=== PATIENT | female | born 1945 | race Caucasian/White ===

== ENCOUNTER → 2016-11-10 | Outpatient (REF) | payer OTHER ==
[~2016-11-10] MED LIST: /ATOR40TA OR; /PANT40TA OR; /WARF25TA OR; ACET650S OR; AMLO10TAB OR; ASPI81TA83 OR; ATEN50TA2 OR; HYDR25TA6; LEVOXYL25 MCG; LEVOXYL25 MCG OR; LISI20TA5; NITR0.4S SL; TETR250C; WARF5VL IV
[2016-11-10 17:07] LABS: ALBUMIN 3.8 GM/DL (3.2-5.2); ALBUMIN/GLOBULIN RATIO 0.93 (1.00-1.93); BILIRUBIN,TOTAL 1.2 MG/DL (0.2-1.0); CREATININE FOR GFR 1.6 MG/DL (0.55-1.02); GLOMERULAR FILTRATION RATE 33.8 (>39); POTASSIUM SERUM 4.3 MEQ/L (3.5-5.1); TOTAL PROTEIN 7.9 GM/DL (6.4-8.2); URIC ACID 5.5 MG/DL (2.6-6.0)
[2016-11-10 18:20] LABS: BASO % 0.5 % (0.0-1.0); EOS # 0.2 K/mm3 (0.0-0.50); LYMPH # 1.8 K/mm3 (1.5-4.5); MEAN CORPUSCULAR HEMOGLOBIN 27.6 pg (27.0-33.0); MEAN CORPUSCULAR HGB CONC 31.9 g/dl (32.0-36.5); MEAN CORPUSCULAR VOLUME 86.6 fl (80.0-96.0); MONO # 0.5 K/mm3 (0.0-0.8); MONO % 7.8 % (0.0-5.0); NEUTROPHILS # 3.9 K/mm3 (1.8-7.7); NEUTROPHILS % 60.9 % (36.0-66.0); RED CELL DISTRIBUTION WIDTH 15.2 % (11.5-14.5); WHITE BLOOD COUNT 6.5 K/mm3 (4.0-10.0)
== END ==
LOC: M LAB REF 16:15
PROVIDERS: ATTEND Family Medicine
DX: Z00.00 Encounter for general adult medical examination without abnormal findings (principal); I48.91 Unspecified atrial fibrillation; Z79.01 Long term (current) use of anticoagulants; N18.3 Chronic kidney disease, stage 3 (moderate); E11.9 Type 2 diabetes mellitus without complications; M10.9 Gout, unspecified; E78.5 Hyperlipidemia, unspecified; N25.0 Renal osteodystrophy

== ENCOUNTER → 2017-12-12 | Outpatient (REF) | payer OTHER ==
[2017-12-12 18:33] LABS: BASO # 0.1 10^3/uL (0.0-0.2); BASO % 0.7 % (0.0-1.0); EOS # 0.3 10^3/uL (0.0-0.50); EOS % 4.4 % (0.0-3.0); HEMATOCRIT 41.7 % (36.0-47.0); HEMOGLOBIN 13.5 g/dl (12.0-15.5); IMMATURE GRANULOCYTE % 0.1 % (0-3.0); LYMPH % 29.5 % (24.0-44.0); MEAN CORPUSCULAR HEMOGLOBIN 28.1 pg (27.0-33.0); MEAN CORPUSCULAR HGB CONC 32.4 g/dl (32.0-36.5); MEAN CORPUSCULAR VOLUME 86.9 fl (80.0-96.0); MONO # 0.7 10^3/uL (0.0-0.8); MONO % 9.6 % (0.0-5.0); NEUTROPHILS # 3.8 10^3/uL (1.8-7.7); NEUTROPHILS % 55.7 % (36.0-66.0); PLATELET COUNT, AUTOMATED 151 10^3/uL (150-450); RED CELL DISTRIBUTION WIDTH 16.1 % (11.5-14.5); WHITE BLOOD COUNT 6.8 10^3/uL (4.0-10.0)
[2017-12-12 19:08] LABS: ALBUMIN 3.5 GM/DL (3.2-5.2); ALBUMIN/GLOBULIN RATIO 0.88 (1.00-1.93); ALKALINE PHOSPHATASE 115 U/L (45-117); ALT/SGPT 23 U/L (12-78); ANION GAP 10 MEQ/L (8-16); AST/SGOT 22 U/L (7-37); BILIRUBIN,TOTAL 1.4 MG/DL (0.2-1.0); BLOOD UREA NITROGEN 24 MG/DL (7-18); CARBON DIOXIDE LEVEL 26 MEQ/L (21-32); CHLORIDE LEVEL 106 MEQ/L (98-107); CHOLESTEROL LEVEL 151 MG/DL (<200); CHOLESTEROL RISK RATIO 3.775 (<5); GLOMERULAR FILTRATION RATE 33.7 (>39); GLUCOSE, FASTING 117 MG/DL (70-100); HDL CHOLESTEROL 40 MG/DL (>40); LDL CHOLESTEROL 71 MG/DL (<100); NON-HDL-C 111 MG/DL; POTASSIUM SERUM 4.2 MEQ/L (3.5-5.1); SODIUM LEVEL 142 MEQ/L (136-145); TOTAL PROTEIN 7.5 GM/DL (6.4-8.2); TRIGLYCERIDES LEVEL 198 MG/DL (<150)
[2017-12-12 19:56] LABS: PTH INTACT 32.9 PG/ML (18.5-88.0)
== END ==
LOC: M LAB REF 16:39
DX: I48.91 Unspecified atrial fibrillation (principal); N18.3 Chronic kidney disease, stage 3 (moderate); E11.9 Type 2 diabetes mellitus without complications; E78.5 Hyperlipidemia, unspecified; Z79.01 Long term (current) use of anticoagulants; Z00.00 Encounter for general adult medical examination without abnormal findings
CPT/HCPCS: 80053

== ENCOUNTER → 2022-07-27 | Outpatient (REF) | payer OTHER ==
[~2022-07-27] MED LIST changes: -/ATOR40TA OR; -/PANT40TA OR; -/WARF25TA OR; +COUM1TAB18 OR; +LIPI1TAB2 OR; +PROT1TAB2 OR
[2022-07-27 18:27] LABS: PERCENT SATURATION 6.8 % (13.2-45.0)
[2022-07-27 18:29] LABS: FERRITIN 42.3 NG/ML (7.3-270.7)
== END ==
LOC: M LAB REF 17:29
PROVIDERS: ATTEND Internal Medicine Nephrology
DX: E61.1 Iron deficiency (principal)

== ENCOUNTER → 2022-12-19 | Outpatient (REF) | payer MEDICARE ==
[2022-12-19 17:58] LABS: FERRITIN 43.8 NG/ML (7.3-270.7); PERCENT SATURATION 7.2 % (13.2-45.0)
== END ==
LOC: M LAB REF 16:53
PROVIDERS: ATTEND Internal Medicine Nephrology
DX: E61.1 Iron deficiency (principal)

== ENCOUNTER 2023-01-16 14:51 | Outpatient (CLI) | payer MEDICARE, MEDICAID ==
[~2023-01-16] VITALS: Ht 160 cm; Wt 86.3 kg
[~2023-01-16 14:51] MED LIST changes: +ALBUTEROL SULFATE 2.5MG/0.5ML INH NEB SOLN INH PRN; +EPINEPHrine INJ 1 MG/ML 1ML AMP IM PRN; +diphenhydrAMINE 50MG/ML VIAL IV PRN; +methylPREDNISolone 125MG 2ML VIAL IV PRN
[2023-01-16 15:04] VITALS: BP 146/65; O2SAT 98
[2023-01-16] MEDS ORDERED: IRON SUCROSE 300 MG in NS 185 ML IV ONE (15:20)
[2023-01-16] MEDS ORDERED: NS 1,000 ML IV SCH (15:25)
[2023-01-16 17:06] VITALS: BP 138/64; O2SAT 99
== END 2023-01-16 17:05 ==
LOC: M INFU 14:51
PROVIDERS: ATTEND Internal Medicine Nephrology
DX: D50.9 Iron deficiency anemia, unspecified (principal)
CPT/HCPCS: 96365; J1756

== ENCOUNTER 2023-01-30 14:55 | Outpatient (CLI) | payer MEDICARE ==
[~2023-01-30] VITALS: Ht 157.5 cm; Wt 85.4 kg
[2023-01-30] MEDS ORDERED: IRON SUCROSE 300 MG in NS 185 ML IV ONE (15:05)
[2023-01-30 15:08] VITALS: BP 159/72; O2SAT 98
[2023-01-30] MEDS ORDERED: NS 1,000 ML IV SCH (15:10)
[2023-01-30 16:45] VITALS: BP 147/65; O2SAT 100
== END 2023-01-30 16:49 ==
LOC: M INFU 14:55
PROVIDERS: ATTEND Internal Medicine Nephrology
DX: D50.9 Iron deficiency anemia, unspecified (principal)
CPT/HCPCS: 96365; J1756

== ENCOUNTER → 2023-05-10 | Outpatient (REF) | payer MEDICARE ==
[~2023-05-10] MED LIST changes: -ALBUTEROL SULFATE 2.5MG/0.5ML INH NEB SOLN INH PRN; -EPINEPHrine INJ 1 MG/ML 1ML AMP IM PRN; -diphenhydrAMINE 50MG/ML VIAL IV PRN; -methylPREDNISolone 125MG 2ML VIAL IV PRN
[2023-05-10 18:46] LABS: FERRITIN 42.7 NG/ML (7.3-270.7)
== END ==
LOC: M LAB REF 17:13
PROVIDERS: ATTEND Internal Medicine Nephrology
DX: E61.1 Iron deficiency (principal)

== ENCOUNTER 2023-06-21 10:03 | Outpatient (CLI) | payer MEDICARE ==
[~2023-06-21] VITALS: Ht 157.5 cm; Wt 79.5 kg
[~2023-06-21 10:03] MED LIST changes: +ALBUTEROL SULFATE 2.5MG/0.5ML INH NEB SOLN INH PRN; +EPINEPHrine INJ 1 MG/ML 1ML AMP IM PRN; +NS 1,000 ML IV SCH; +diphenhydrAMINE 50MG/ML VIAL IV PRN; +methylPREDNISolone 125MG 2ML VIAL IV PRN
[2023-06-21 10:11] VITALS: BP 136/64; O2SAT 97
[2023-06-21] MEDS: IRON SUCROSE 300 MG in NS 250 ML OVER 90 MIN. IV ONE (10:27)
[2023-06-21] MEDS ORDERED: ELIQ5TAB PO (10:47)
[2023-06-21 12:05] VITALS: BP 130/61; O2SAT 96
== END 2023-06-21 12:17 | disposition home or self-care (01) ==
LOC: M INFU 10:03
PROVIDERS: ATTEND Internal Medicine Nephrology
DX: E61.1 Iron deficiency (principal)
CPT/HCPCS: 96365; 96366; J1756

== ENCOUNTER 2023-07-05 11:35 | Outpatient (CLI) | payer MEDICARE ==
[~2023-07-05] VITALS: Ht 157.5 cm; Wt 80.9 kg
[2023-07-05 11:23] VITALS: BP 153/65; O2SAT 100
[2023-07-05] MEDS: IRON SUCROSE 300 MG in NS 250 ML OVER 90 MIN. IV ONE (11:32)
[~2023-07-05 11:35] MED LIST changes: +ELIQ5TAB PO
== END 2023-07-05 13:16 | disposition home or self-care (01) ==
LOC: M INFU 11:35
PROVIDERS: ATTEND Internal Medicine Nephrology
DX: E61.1 Iron deficiency (principal)
CPT/HCPCS: 96365; 96366; J1756

== ENCOUNTER 2023-07-19 13:15 | Outpatient (CLI) | payer MEDICARE ==
[~2023-07-19] VITALS: Ht 158.8 cm; Wt 83.0 kg
[2023-07-19 13:15] VITALS: BP 137/63; O2SAT 100
[~2023-07-19 13:15] MED LIST changes: +ALBUTEROL SULFATE 2.5MG/0.5ML INH NEB SOLN INH PRN; +EPINEPHrine INJ 1 MG/ML 1ML AMP IM PRN; +NS 1,000 ML IV SCH; +diphenhydrAMINE 50MG/ML VIAL IV PRN; +methylPREDNISolone 125MG 2ML VIAL IV PRN
[2023-07-19] MEDS: IRON SUCROSE 300 MG in NS 250 ML OVER 90 MIN. IV ONE (13:25)
[2023-07-19 15:15] VITALS: BP 143/99; O2SAT 99
== END 2023-07-19 15:15 | disposition home or self-care (01) ==
LOC: M INFU 13:15
PROVIDERS: ATTEND Internal Medicine Nephrology
DX: E61.1 Iron deficiency (principal)
CPT/HCPCS: 96365; 96366; J1756

== ENCOUNTER → 2023-07-19 | Outpatient (CLI) | payer MEDICAID, MEDICARE ==
[~2023-07-19] MED LIST changes: -ALBUTEROL SULFATE 2.5MG/0.5ML INH NEB SOLN INH PRN; -EPINEPHrine INJ 1 MG/ML 1ML AMP IM PRN; -NS 1,000 ML IV SCH; -diphenhydrAMINE 50MG/ML VIAL IV PRN; -methylPREDNISolone 125MG 2ML VIAL IV PRN
== END ==
LOC: M RAD 15:25
PROVIDERS: ATTEND Otolaryngology
DX: R22.1 Localized swelling, mass and lump, neck (principal)

== ENCOUNTER 2024-02-18 06:29 | Observation (INO) | payer MEDICARE ==
[~2024-02-18] VITALS: Ht 157.5 cm; Wt 81.7 kg
[~2024-02-18 06:29] MED LIST changes: -ALBUTEROL SULFATE 2.5MG/0.5ML INH NEB SOLN INH PRN; +ALLO100T PO; +AMLO1TAB25 PO; +ATOR40TA75 PO; +BAYE81TA10 PO; -EPINEPHrine INJ 1 MG/ML 1ML AMP IM PRN; +FAMO40TA3 PO; +FARX1TAB5 PO; +LEVO112T2 PO; +METO1TAB7 PO; +METO25TA PO; -NS 1,000 ML IV SCH; +PANT40TA29 PO; +POTA-150 PO; +TORS100T PO; +VENTAER INH; -diphenhydrAMINE 50MG/ML VIAL IV PRN; -methylPREDNISolone 125MG 2ML VIAL IV PRN
[2024-02-18] MEDS: CYCLOPENTOLATE 1% OPHTH SOLN 2ML BTL OD SCH (07:35)
[2024-02-18] MEDS: FLURBIPROFEN 0.03% OPHTH SOLN 2.5 ML OD SCH (07:35)
[2024-02-18] MEDS: PHENYLEPHRINE 2.5% OPHTH SOL 2ML OD SCH (07:35)
[2024-02-18] MEDS: TETRACAINE 0.5% OPHTH SOLN 4ML OD SCH (07:35)
[2024-02-18 08:05] LABS: POTASSIUM SERUM 2.7 MMOL/L (3.5-5.1)
[2024-02-18] MEDS ORDERED: MIDAZOLAM INJ 2MG/2ML VIAL As Ordered ONE (08:18)
[2024-02-18] MEDS ORDERED: fentaNYL 100 MCG/2 ML INJECTION As Ordered ONE (08:18)
[2024-02-18] MEDS ORDERED: MAG SULF 1GM/100ML (MAG RUN) 1 GM in IV 1 EA IV SCH (09:25)
[2024-02-18 09:45] LABS: CALCIUM LEVEL 9.7 MG/DL (8.3-10.6); CREATININE FOR GFR 3.04 MG/DL (0.55-1.30); GLOMERULAR FILTRATION RATE 15.8 (>39); MAGNESIUM LEVEL 2.6 MG/DL (1.8-2.4)
[2024-02-18] MEDS: POTASSIUM CHLORIDE 10MEQ SR TABLET PO SCH (10:09)
[2024-02-18] MEDS ORDERED: GLUCOSE 4 GM CHEW PO PRN (11:30)
[2024-02-18] MEDS ORDERED: DEXTROSE 50% 50ML SYRINGE IV PRN (11:30)
[2024-02-18] MEDS ORDERED: GLUCAGON INJ 1MG VIAL SC PRN (11:30)
[2024-02-18 14:53] VITALS: BP 137/52; TEMP 97.7; O2SAT 98
[2024-02-18] MEDS: LR 1,000 ML IV SCH (15:09)
[2024-02-18] MEDS: INSULIN LISPRO (NovoLOG) PER UNIT SC SCH ×2 (15:09→20:33)
[2024-02-18] MEDS ORDERED: HOME MED LIST COMPLETE! XX SCH (18:25)
[2024-02-18] MEDS ORDERED: ALBUTEROL 90 MCG/ACT 8GM HFA INHALER INH PRN (18:50)
[2024-02-18 19:27] LABS: MAGNESIUM LEVEL 2.6 MG/DL (1.8-2.4); POTASSIUM SERUM 3.5 MMOL/L (3.5-5.1)
[2024-02-18 20:17] VITALS: BP 135/53; TEMP 97.9; O2SAT 97
[2024-02-18] MEDS: APIXABAN 2.5 MG TAB (ELIQUIS) PO SCH (20:33)
[2024-02-19 00:52] LABS: MAGNESIUM LEVEL 2.6 MG/DL (1.8-2.4); POTASSIUM SERUM 3.7 MMOL/L (3.5-5.1)
[2024-02-19 03:25] VITALS: BP 132/54; TEMP 98.6; O2SAT 97
[2024-02-19] MEDS: LEVOTHYROXINE 112MCG TABLET (0.112MG) PO SCH (06:15)
[2024-02-19 06:30] LABS: CALCIUM LEVEL 9.2 MG/DL (8.3-10.6); CREATININE FOR GFR 3.08 MG/DL (0.55-1.30); GLOMERULAR FILTRATION RATE 15.6 (>39); MAGNESIUM LEVEL 2.4 MG/DL (1.8-2.4); POTASSIUM SERUM 3.3 MMOL/L (3.5-5.1)
[2024-02-19 06:32] LABS: THYROXINE (T4) 5.5 UG/DL (4.5-10.9)
[2024-02-19 06:33] LABS: FREE THYROXINE INDEX 2.2 % (1.3-4.8); T UPTAKE 39.4 % (22.5-37.0); THYROID STIMULATING HORMONE 8.092 uIU/ML (0.55-4.78)
[2024-02-19] MEDS: ASPIRIN 81MG ENTERIC TABLET PO SCH (08:43)
[2024-02-19] MEDS: allopurinoL 100 MG TAB PO SCH (08:43)
[2024-02-19] MEDS: ATORVASTATIN 20 MG TAB PO SCH (08:43)
[2024-02-19] MEDS: PANTOPRAZOLE 40MG TAB (PROTONIX) PO SCH (08:44)
[2024-02-19 08:46] VITALS: BP 126/53
[2024-02-19] MEDS ORDERED: metOLazone 2.5 MG TAB PO SCH (09:00)
[2024-02-19] MEDS: TORSEMIDE 100 MG TAB PO SCH (09:00)
[2024-02-19] MEDS: LIDOCAINE 1% SDV 5ML VIAL As Ordered ONE (09:57)
[2024-02-19] MEDS: CEFUROXIME 1MG/0.1ML INTRACAMERAL INJ As Ordered ONE (09:58)
[2024-02-19] MEDS: FAMOTIDINE 20 MG TAB PO SCH (11:09)
[2024-02-19] MEDS: POTASSIUM CHLORIDE 10MEQ SR TABLET PO ONE ×2 (11:09→14:16)
[2024-02-19] MEDS: SPIRONOLACTONE 25 MG TAB PO ONE (11:09)
[2024-02-19 11:58] VITALS: BP 133/57; TEMP 98.1; O2SAT 100
[2024-02-19 12:36] LABS: MAGNESIUM LEVEL 2.5 MG/DL (1.8-2.4); POTASSIUM SERUM 3.5 MMOL/L (3.5-5.1)
[2024-02-19] MEDS ORDERED: POTASSIUM CHLORIDE 10MEQ SR TABLET PO SCH (13:00)
[2024-02-19] MEDS ORDERED: ALDA25TA2 PO (16:48)
[2024-02-19] MEDS ORDERED: POTA-150 PO (16:48)
[2024-02-20] MEDS ORDERED: SPIRONOLACTONE 25 MG TAB PO SCH (09:00)
== END 2024-02-19 18:03 | disposition home or self-care (01) ==
LOC: M SDC 06:29 → M RR INP 06:30 → M MSPAV 14:47
PROVIDERS: ADMIT General Practice; ATTEND Ophthalmology
DX: E87.6 Hypokalemia (principal); N17.9 Acute kidney failure, unspecified; N18.4 Chronic kidney disease, stage 4 (severe); I48.91 Unspecified atrial fibrillation; R00.1 Bradycardia, unspecified; E03.9 Hypothyroidism, unspecified; R94.6 Abnormal results of thyroid function studies; H25.9 Unspecified age-related cataract; Z53.09 Procedure and treatment not carried out because of other contraindication; I50.9 Heart failure, unspecified; J44.9 Chronic obstructive pulmonary disease, unspecified; J96.11 Chronic respiratory failure with hypoxia; Z99.81 Dependence on supplemental oxygen; D64.9 Anemia, unspecified; Z87.891 Personal history of nicotine dependence; Z79.899 Other long term (current) drug therapy; Z79.01 Long term (current) use of anticoagulants; Z79.82 Long term (current) use of aspirin; Z79.890 Hormone replacement therapy
CPT/HCPCS: 36415; 76775; 80048; 83735; 83880; 84132; 84436; 84443; 84479; 93005; 97116; 97161; 97165; G0378; G0379; J1815

== ENCOUNTER 2024-03-03 06:28 | Day surgery (SDC) | payer MEDICARE ==
[~2024-03-03] VITALS: Ht 157.5 cm; Wt 79.4 kg
[~2024-03-03 06:28] MED LIST changes: +ALDA25TA2 PO
[2024-03-03] MEDS ORDERED: MIDAZOLAM INJ 2MG/2ML VIAL As Ordered ONE (06:52)
[2024-03-03] MEDS ORDERED: fentaNYL 100 MCG/2 ML INJECTION As Ordered ONE (06:53)
[2024-03-03] MEDS ORDERED: LR 1,000 ML IV SCH (07:00)
[2024-03-03] MEDS: FLURBIPROFEN 0.03% OPHTH SOLN 2.5 ML OD SCH (07:16)
[2024-03-03] MEDS: TETRACAINE 0.5% OPHTH SOLN 4ML OD SCH (07:16)
[2024-03-03] MEDS: PHENYLEPHRINE 2.5% OPHTH SOL 2ML OD SCH (07:16)
[2024-03-03] MEDS: CYCLOPENTOLATE 1% OPHTH SOLN 2ML BTL OD SCH (07:16)
[2024-03-03] MEDS: LIDOCAINE 1% SDV 5ML VIAL As Ordered ONE (08:35)
[2024-03-03] MEDS: CEFUROXIME 1MG/0.1ML INTRACAMERAL INJ As Ordered ONE (08:45)
[2024-03-03 08:56] VITALS: BP 137/65; TEMP 97.8; O2SAT 95
[2024-03-03] MEDS: TRYPAN BLUE 0.06 % 2.25 ML OPHTH SYR (VISIONBLUE) As Ordered ONE (09:00)
== END 2024-03-03 09:13 | disposition home or self-care (01) ==
LOC: M SDC 06:28
PROVIDERS: ATTEND Ophthalmology
DX: H25.9 Unspecified age-related cataract (principal); E11.9 Type 2 diabetes mellitus without complications; I48.91 Unspecified atrial fibrillation; Z86.73 Personal history of transient ischemic attack (TIA), and cerebral infarction without residual deficits; Z79.899 Other long term (current) drug therapy; Z98.42 Cataract extraction status, left eye
CPT/HCPCS: 66984; J0697; J2250; J3010; V2632

== ENCOUNTER 2024-03-24 07:22 | Day surgery (SDC) | payer MEDICARE ==
[~2024-03-24] VITALS: Ht 157.5 cm; Wt 82.7 kg
[~2024-03-24 07:22] MED LIST changes: +LR 1,000 ML IV SCH; +MIDAZOLAM INJ 2MG/2ML VIAL As Ordered ONE; +POTA-298 PO; +SPIR-10 PO; +fentaNYL 100 MCG/2 ML INJECTION As Ordered ONE
[2024-03-24] MEDS: TETRACAINE 0.5% OPHTH SOLN 4ML OS SCH (07:58)
[2024-03-24] MEDS: CYCLOPENTOLATE 1% OPHTH SOLN 2ML BTL OS SCH (07:58)
[2024-03-24] MEDS: FLURBIPROFEN 0.03% OPHTH SOLN 2.5 ML OS SCH (07:59)
[2024-03-24] MEDS: PHENYLEPHRINE 2.5% OPHTH SOL 2ML OS SCH (07:59)
[2024-03-24] MEDS: LIDOCAINE 1% SDV 5ML VIAL As Ordered ONE (09:30)
[2024-03-24] MEDS: CEFUROXIME 1MG/0.1ML INTRACAMERAL INJ As Ordered ONE (09:31)
[2024-03-24 09:40] VITALS: BP 121/58; TEMP 97; O2SAT 96
== END 2024-03-24 09:55 | disposition home or self-care (01) ==
LOC: M SDC 07:22
PROVIDERS: ATTEND Ophthalmology
DX: E11.36 Type 2 diabetes mellitus with diabetic cataract (principal); H25.12 Age-related nuclear cataract, left eye; I48.91 Unspecified atrial fibrillation; I10 Essential (primary) hypertension; J44.9 Chronic obstructive pulmonary disease, unspecified; E89.0 Postprocedural hypothyroidism; E78.00 Pure hypercholesterolemia, unspecified; N28.9 Disorder of kidney and ureter, unspecified; Z79.890 Hormone replacement therapy; Z79.84 Long term (current) use of oral hypoglycemic drugs; Z79.01 Long term (current) use of anticoagulants; Z79.899 Other long term (current) drug therapy; K21.9 Gastro-esophageal reflux disease without esophagitis; M10.9 Gout, unspecified; Z92.3 Personal history of irradiation; Z86.73 Personal history of transient ischemic attack (TIA), and cerebral infarction without residual deficits; Z87.891 Personal history of nicotine dependence
CPT/HCPCS: 66984; J0697; J2250; J3010; V2632

== ENCOUNTER → 2024-05-21 | Outpatient (REF) | payer MEDICARE ==
[~2024-05-21] MED LIST changes: -LR 1,000 ML IV SCH; -MIDAZOLAM INJ 2MG/2ML VIAL As Ordered ONE; -fentaNYL 100 MCG/2 ML INJECTION As Ordered ONE
[2024-05-21 17:09] LABS: CALCIUM LEVEL 9.8 MG/DL (8.3-10.6); CREATININE FOR GFR 3.77 MG/DL (0.55-1.30); GLOMERULAR FILTRATION RATE 12.3 (>39)
== END ==
LOC: M LAB REF 15:26
PROVIDERS: ATTEND Family Medicine
DX: I35.0 Nonrheumatic aortic (valve) stenosis (principal); D64.9 Anemia, unspecified; I12.9 Hypertensive chronic kidney disease with stage 1 through stage 4 chronic kidney disease, or unspecified chronic kidney disease; E11.9 Type 2 diabetes mellitus without complications; M10.9 Gout, unspecified

== ENCOUNTER → 2024-06-03 | Outpatient (REF) | payer MEDICARE ==
[2024-06-03 16:45] LABS: CALCIUM LEVEL 9.1 MG/DL (8.3-10.6); CREATININE FOR GFR 3.16 MG/DL (0.55-1.30); GLOMERULAR FILTRATION RATE 15.1 (>39); POTASSIUM SERUM 4.1 MMOL/L (3.5-5.1)
== END ==
LOC: M LAB REF 15:56
PROVIDERS: ATTEND Family Medicine
DX: I12.9 Hypertensive chronic kidney disease with stage 1 through stage 4 chronic kidney disease, or unspecified chronic kidney disease (principal); E87.6 Hypokalemia; I27.20 Pulmonary hypertension, unspecified

== ENCOUNTER → 2024-06-24 | Outpatient (CLI) | payer MEDICARE ==
[2024-06-24 16:37] LABS: BASO % 0.5 % (0.0-1.0); EOS # 0.3 10^3/uL (0.0-0.5); EOS % 3.1 % (0.0-3.0); HEMATOCRIT 33.3 % (36.0-47.0); LYMPH # 1.3 10^3/uL (1.5-5.0); LYMPH % 16.4 % (24.0-44.0); MEAN CORPUSCULAR HEMOGLOBIN 25.4 pg (27.0-33.0); MEAN CORPUSCULAR VOLUME 84.5 fl (80.0-96.0); MONO # 0.8 10^3/uL (0.0-0.8); MONO % 9.3 % (2.0-8.0); NEUTROPHILS # 5.7 10^3/uL (1.5-8.5); NEUTROPHILS % 70.5 % (36.0-66.0); PLATELET COUNT, AUTOMATED 221 10^3/uL (150-450); RED BLOOD COUNT 3.94 10^6/uL (4.00-5.40); WHITE BLOOD COUNT 8.1 10^3/uL (4.0-10.0)
[2024-06-24 16:59] LABS: ALBUMIN 3.1 G/DL (3.2-5.2); BILIRUBIN,TOTAL 1.5 MG/DL (0.3-1.2); CALCIUM LEVEL 8.9 MG/DL (8.3-10.6); CREATININE FOR GFR 2.84 MG/DL (0.55-1.30); GLOMERULAR FILTRATION RATE 16.5 (>39); POTASSIUM SERUM 4.6 MMOL/L (3.5-5.1); TOTAL PROTEIN 6.5 G/DL (5.7-8.2)
== END ==
LOC: M LAB 16:09
PROVIDERS: ATTEND Nurse Practitioner Acute Care
DX: I35.0 Nonrheumatic aortic (valve) stenosis (principal)

== ENCOUNTER 2024-10-01 09:14 | Outpatient (CLI) | payer MEDICARE, MEDICAID ==
[~2024-10-01] VITALS: Ht 157.5 cm; Wt 81.8 kg
[~2024-10-01 09:14] MED LIST changes: +ALBUTEROL SULFATE 2.5 MG/0.5 ML INH CONCENTRATE NEB SOLN INH PRN; +EPINEPHrine INJ 1 MG/ML 1ML AMP IM PRN; +diphenhydrAMINE 50 MG/ML VIAL IV PRN
[2024-10-01 09:15] VITALS: BP 142/65; O2SAT 99
[2024-10-01] MEDS: IRON SUCROSE 300 MG in NS 250 ML OVER 90 MIN. IV ONE (09:23)
[2024-10-01 11:20] VITALS: BP 161/69; O2SAT 99
== END 2024-10-01 11:30 | disposition home or self-care (01) ==
LOC: M INFU 09:14
PROVIDERS: ATTEND Internal Medicine Nephrology
DX: E61.1 Iron deficiency (principal); E63.1 Imbalance of constituents of food intake
CPT/HCPCS: 96365; 96366; J1756

== ENCOUNTER 2024-10-08 09:47 | Outpatient (CLI) | payer MEDICARE, MEDICAID ==
[~2024-10-08] VITALS: Ht 157.5 cm; Wt 82.0 kg
[2024-10-08 09:50] VITALS: BP 156/96; O2SAT 100
[2024-10-08] MEDS ORDERED: NS (Normal Saline) 0.9% 1,000 ML IV SCH (10:00)
[2024-10-08] MEDS: IRON SUCROSE 300 MG in NS 250 ML OVER 90 MIN. IV ONE (10:06)
[2024-10-08 11:45] VITALS: BP 156/71; O2SAT 99
== END 2024-10-08 11:45 ==
LOC: M INFU 09:47
PROVIDERS: ATTEND Internal Medicine Nephrology
DX: E61.1 Iron deficiency (principal); E63.1 Imbalance of constituents of food intake
CPT/HCPCS: 96365; 96366; J1756

== ENCOUNTER 2024-10-15 09:22 | Outpatient (CLI) | payer MEDICARE, MEDICAID ==
[~2024-10-15] VITALS: Ht 157.5 cm; Wt 82.0 kg
[2024-10-15 09:40] VITALS: BP 150/70; O2SAT 98
[2024-10-15] MEDS: IRON SUCROSE 300 MG in NS 250 ML OVER 90 MIN. IV ONE (10:07)
[2024-10-15 11:45] VITALS: BP 154/73; O2SAT 100
== END 2024-10-15 11:50 ==
LOC: M INFU 09:22
PROVIDERS: ATTEND Internal Medicine Nephrology
DX: E61.1 Iron deficiency (principal); E63.1 Imbalance of constituents of food intake
CPT/HCPCS: 96365; 96366; J1756